=== PATIENT | male | born 2005 | race Caucasian/White ===

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

== ENCOUNTER 2023-07-15 13:32 | Emergency (ER) | payer OTHER, SELFPAY ==
[2023-07-15 14:08] VITALS: BP 138/75; PULSE 87; RESP 16; TEMP 37.6; O2SAT 99
--- NOTE | 2023-07-15 15:40 | ED.HEATRA ---
HPI - Head Injury General Chief complaint: Head Injury Stated complaint: Head Injury Time Seen by Provider: 07/15/23 15:15 Source: patient, RN notes reviewed and old records reviewed Mode of arrival: ambulatory Limitations: no limitations History of Present Illness HPI Narrative: 17-year-old male to [facility] requesting a work note stating he is able to return to work tomorrow. Patient states that yesterday while working underneath a truck he moved his head upward and struck lower left posterior head on bottom of the truck. Patient denies LOC, nausea or vomiting after injury, visual changes. Patient states dizziness after impact that resolved within 5 minutes. Patient A and O x3 in exam room. Speech normal and clear. Patient's significant other who is with him states she has not noticed any changes and voices no concerns. patient in no acute distress. Patient able to tolerate fluids by mouth Related Data Allergies Allergy/AdvReac Type Severity Reaction Status Date / Time No Known Allergies Allergy Verified 07/15/23 14:14 Review of Systems Review of Systems: All systems reviewed & are unremarkable except as noted in HPI and below Constitutional: Constitutional: Reports no additional constitutional complaints Eyes: Eyes: Reports no additional eye complaints ENT: Reports system reviewed and no additional complaints, except as documented Cardiovascular: Cardiovascular: Reports no additional cardiovascular complaints, Denies chest pain and Denies dyspnea Respiratory: Respiratory: Reports no additional respiratory complaints, Denies cough and Denies dyspnea Musculoskeletal: Musculoskeletal: Reports no additional musculoskeletal complaints Neurologic: Reports as per HPI, Reports Normal hearing present, Denies Abnormal speech present, Denies abnormal gait, Denies behavioral changes, Denies vertigo, Denies dizziness, Denies syncope, Reports headache(s), Denies lack of coordination, Denies loss of vision and Denies Other visual disturbances Psychiatric: Psychiatric: Reports no additional psychiatric complaints PMF Past Medical History Medical History Sleep apnea Surgical History Surgical History H/O adenoidectomy Hx of tonsillectomy Comments At the time of my signature, I reviewed and agree with the nursing past medical, surgical, social, and family history. There is no relevant family history pertinent to the patient complaint. Exam Const: General: cooperative, healthy appearing, comfortable, no acute distress, alert and well nourished Nutritional Appearance: well nourished Orientation/consciousness: patient oriented x3 Limitations: no limitations HENMT: Head: No palpable skull fracture present, normocephalic and scalp tenderness (lower left posterior) Ears: external ears normal Face/Nose/Sinus: Normal external nose present, Normal nares present, normal facial exam, No erythema and No edema Face and sinus: normal facial exam, no erythema and no edema Mouth: Yes Normal oral and palatal mucosa present Eyes: General: appearance normal, both eyes and all related structures Alignment and Position: alignment normal and position normal Pupils: Equal, round and reactive pupils present, Pupils normal by confrontation and Pupil accommodation reflex normal Neck: Neck: normal visual inspection, full ROM and no meningeal signs Lymphatic: no lymphadenopathy noted and no lymphedema noted Chest: Chest palpation & inspection: normal inspection of the chest Resp: Effort & Inspection: normal respiratory effort and able to speak in complete sentences Auscultation: clear to auscultation bilaterally Cardio: Jugular venous distension: no JVD Rate: regular rate Rhythm: regular rhythm Back/Spine/Pelvis: Cervical Spine: cervical ROM normal Skin: General skin exam: normal color, no rashes or lesions n
== END 2023-07-15 15:56 | disposition home or self-care (01) ==
PROVIDERS: Emergency Provider Nurse Practitioner Family
DX: S06.0X0A Concussion without loss of consciousness, initial encounter (principal); W22.8XXA Striking against or struck by other objects, initial encounter
CPT/HCPCS: 99213; G0463

== ENCOUNTER 2024-11-27 09:00 | Emergency (ER) | payer OTHER, SELFPAY ==
--- OUTSIDE RECORDS SUMMARY | 2008-10-11 19:00 | XMS_ITS | Continuity of Care Document ---
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 No Information Roge Michele. [address] [facility] [address], [place], [address], [place]. tel:[phone] Family History Family Member Type Diagnosis Age At Onset No Information Immunizations Vaccine Date Status Comments 51575 - Hepatitis_A administered Source: Source Unspecified 35687 - Polio_OPV_IPV administered Source : Source Unspecified 13628 - DTaP_DTP_DT_PEDS administered Hillary rce: Source Unspecified 04087 - Hepatitis_B administered Source: Source Unspecified 62009 - Pneumococcal_PCV administered Hillary rce: Source Unspecified 69041 - MMR administered Source: Source Unspecified 47275 - Hib administered Source: Source Unspecified 31801 - Varicella administered Source: So urce Unspecified 99854 - Hepatitis_B administered Source: Source Unspecified 64175 - Hib administered Source: Source Unspecified 56665 - DTaP_DTP_DT_PEDS administered Hillary rce: Source Unspecified 79509 - Pneumococcal_PCV administered Hillary rce: Source Unspecified 08458 - Hib administered Source: Source Unspecified 58082 - Polio_OPV_IPV administered Source : Source Unspecified 87981 - DTaP_DTP_DT_PEDS administered Hillary rce: Source Unspecified 06264 - Pneumococcal_PCV administered Hillary rce: Source Unspecified 98507 - Hepatitis_B administered Source: Source Unspecified 16459 - Hepatitis_B administered Source: Source Unspecified 87315 - Hib administered Source: Source Unspecified 02623 - Pneumococcal_PCV administered Hillary rce: Source Unspecified 81721 - Polio_OPV_IPV administered Source : Source Unspecified 67875 - DTaP_DTP_DT_PEDS administered Hillary rce: Source Unspecified Payers Payer name Insurance type Covered libertarian ID Authoriza tion(s) No Information Social History Type Description Quantity Date Captured Comments Sex Male Smoking Status No Information Chief Complaint And Reason For Visit No Information Reason For Referral Reason For Referral No Information History Of Present Illness Encounter Date Complaint History Of Prese nt Illness No Information Functional Status Date Functional Assessmen t No Information Instructions Date Instruction Additional Infor mation No Information Assessments Type Assessment Date No Information Patient Care Teams Name Effective Dates (start - stop) Status Members No Information
--- OUTSIDE RECORDS SUMMARY | 2008-10-11 19:00 | XMS_ITS | Continuity of Care Document ---
Author Organization [facility] Address [address] [place] [address] Phone Care Team Providers Care Mortgage Loan Coordinator Name Role Phone Ryne Guan MD Unavailable Unavailable Advance Directives Directive Yes / No Effective Date File Name No Information Encounters Encounter Description Practice Location Reason(s) For Visit Diagnoses Date Provider Providers Copied on Encounter [facility], [address], [place], [place], [address], [place] tel:[phone] [facility] No Information Roge Michele. [address] [facility] [address], [place], [id number], [place]. tel:[phone] Family History Family Member Type Diagnosis Age At Onset No Information Immunizations Vaccine Date Status Comments 93825 - Hepatitis_A administered Source: Source Unspecified 37116 - Polio_OPV_IPV administered Source : Source Unspecified 06503 - DTaP_DTP_DT_PEDS administered Hillary rce: Source Unspecified 94356 - Hepatitis_B administered Source: Source Unspecified 64194 - Pneumococcal_PCV administered Hillary rce: Source Unspecified 43536 - MMR administered Source: Source Unspecified 49516 - Hib administered Source: Source Unspecified 27876 - Varicella administered Source: So urce Unspecified 23291 - Hepatitis_B administered Source: Source Unspecified 91197 - Hib administered Source: Source Unspecified 89182 - DTaP_DTP_DT_PEDS administered Hillary rce: Source Unspecified 42677 - Pneumococcal_PCV administered Hillary rce: Source Unspecified 71431 - Hib administered Source: Source Unspecified 56935 - Polio_OPV_IPV administered Source : Source Unspecified 25759 - DTaP_DTP_DT_PEDS administered Hillary rce: Source Unspecified 31869 - Pneumococcal_PCV administered Hillary rce: Source Unspecified 56074 - Hepatitis_B administered Source: Source Unspecified 48639 - Hepatitis_B administered Source: Source Unspecified 00248 - Hib administered Source: Source Unspecified 24060 - Pneumococcal_PCV administered Hillary rce: Source Unspecified 08322 - Polio_OPV_IPV administered Source : Source Unspecified 91533 - DTaP_DTP_DT_PEDS administered Hillary rce: Source Unspecified [...]
--- NOTE | ~2024-11-27 | XR_ITS ---
EXAMINATION: XR finger 1st RT min 2V, 11/27/2024 9:15 CDT HISTORY: twist/smash injury to distal phalanx, blood under nail COMPARISON: No comparisons available. Findings: No acute fracture or malalignment. No significant degenerative changes. Soft tissues unremarkable. Impression: No acute fracture or malalignment. Reviewed, dictated and finalized at location P. Impression: No acute fracture or malalignment.
--- NOTE | 2024-11-27 09:00 | ED.UPPEXIN ---
HPI - Extremity Injury (Upper) General Chief Complaint: Extremity Injury, Upper Stated Complaint: Right Thumb Injury Time Seen by Provider: 11/27/24 09:00 Source: patient Mode of arrival: ambulatory Limitations: no limitations History of Present Illness HPI narrative: Jessica is a 19 year old male patient presenting to the clinic today with c/o right thumb pain/injury x 2 day. He reports he was helping to load a dirt bike and he got his right thumb caught in between the sprocket and the chain. States his thumb was then twisted. Has pain with flexion and extension over the PIP joint. Swelling noted over the distal thumb with subungual hematoma over the right thumb nail. Rates pain 5/10. Has not done any treatment. No open wounds. Related Data Home Medications ?Medication ?Instructions ?Recorded ?Confirmed ?Last Taken ?Type No Home Medications 11/27/24 11/27/24 Unknown History Allergies Allergy/AdvReac Type Severity Reaction Status Date / Time No Known Allergies Allergy Verified 11/27/24 09:08 Review of Systems Review of Systems: Pertinent positives per HPI. Patient denies any fever, chills, rash, headache, visual changes, dizziness, cough, runny nose, sore throat, shortness of breath, chest pain, palpitations, nausea, vomiting, diarrhea, constipation, abdominal pain, or any urinary issues. [facility] Past Medical History Medical History Sleep apnea Surgical History Surgical History H/O adenoidectomy Hx of tonsillectomy Comments At the time of my signature, I reviewed and agree with the nursing past medical, surgical, social, and family history. There is no relevant family history pertinent to the patient complaint. Exam Narrative: General: Well-developed, well nourished, in no apparent distress Head: Normocephalic, atraumatic. Cardio: Regular rate and rhythm, s1 and s2 normal, no murmur appreciated. Resp: Clear to auscultation bilaterally, no rhonchi, rales, wheezing or rubs. Musculoskeletal: No deformity, swelling to the distal right thumb with subungual hematoma, tender to palpation over the distal thumb, pain and limited range of motion with flexion extension over the PIP joint, grossly normal range of motion over the MCP joint,muscle strength strong and equal, peripheral pulse strong, no edema, no cyanosis, normal gait and station Course Course Emergency Course: Portions of this record may have been created with voice recognition software. Level of Care: Express Care Visit Vital Signs Vital signs: Vital Signs Temperature 36.9 C 11/27/24 09:05 Pulse Rate 102 H 11/27/24 09:05 Respiratory Rate 16 11/27/24 09:05 Blood Pressure 141/77 H 11/27/24 09:05 Pulse Oximetry 100 11/27/24 09:05 Oxygen Delivery Room Air 11/27/24 09:05 Temperature 36.9 C 11/27/24 09:05 Pulse Rate 102 H 11/27/24 09:05 Respiratory Rate 16 11/27/24 09:05 Blood Pressure 141/77 H 11/27/24 09:05 Pulse Oximetry 100 11/27/24 09:05 Oxygen Delivery Room Air 11/27/24 09:05 Vital signs reviewed MDM - Extremity Injury (Upper) MDM Narrative Medical decision making narrative: At the time of visit patient is resting comfortably on the exam table. Patient appears to be nontoxic. C/o right thumb pain/injury x 2 day. He reports he was helping to load a dirt bike and he got his right thumb caught in between the sprocket and the chain. States his thumb was then twisted. Has pain with flexion and extension over the PIP joint. Swelling noted over the distal thumb with subungual hematoma over the right thumb nail. Rates pain 5/10. Has not done any treatment. No open wounds. On exam as no deformity, swelling to the distal right thumb with subungual hematoma, tender to palpation over the distal thumb, pain and limited range of motion with flexion extension over the PIP joint, grossly normal range of motion over the MCP joint. X-ray of the right thumb was ordered. Diagnostics: X-ray of the right thumb was performed and was negative for any fracture or malalignment in the clinic today Procedure: Verbal consent obtained for drainage of right thumb subungual hematoma. Area was cleansed with antiseptic wound wash and cauterizing was used to drain subungual hematoma. Patient tolerated well. Area was then covered with Band-Aid. Plan: I suspect patient has thumb contusion with subungual hematoma. Hematoma was drained in the clinic today. Supportive measures were discussed with the patient and they voiced understanding discharge instructions and agrees to treatment plan. Return precautions reviewed Differential Diagnosis Differential diagnosis: Likely finger sprain, dislocation of finger and other (finger fracture) Discharge Plan Discharge Clinical Impression: Subungual hematoma of right thumb Qualifiers: Encounter type: initial encounter Qualified Code(s): S60.111A - Contusion of right thumb with damage to nail, initial encounter Patient Disposition: Home Condition: Stable Instructions: Antibiotic Form, Subungual Hematoma (ED), Contusion in Adults (ED) Additional Instructions: X-rays negative for any sign of fracture or malalignment to the right thumb Subungual hematoma was drained in the clinic today. Rest, ice, and elevate Tylenol/motrin for pain as discussed. Watch for signs and symptoms of infection- fever, redness, swelling, purulent discharge, or streaking. Follow up with your PCP if symptoms persist more than 1 week. Patient Language: Estonian Prescriptions: No Action No Home Medications Follow-up/Referrals: UNKNOWN,DOCTOR [Non-Staff] Time of Disposition: 09:28 Quality NIHSS Nursing Documentation ED NIHSS nursing documentation: reviewed/agree
[2024-11-27 09:05] VITALS: BP 141/77; PULSE 102; RESP 16; TEMP 36.9; O2SAT 100
== END 2024-11-27 09:36 | disposition home or self-care (01) ==
PROVIDERS: Emergency Provider Nurse Practitioner Family
DX: S60.111A Contusion of right thumb with damage to nail, initial encounter (principal); X58.XXXA Exposure to other specified factors, initial encounter
CPT/HCPCS: 11740; 73140; 99213; G0463

== ENCOUNTER 2024-12-09 10:13 | Emergency (ER) | payer OTHER, SELFPAY ==
[2024-12-09 10:18] VITALS: BP 144/69; PULSE 97; RESP 16; TEMP 36.5; O2SAT 99
--- NOTE | 2024-12-09 10:30 | ED_ITS ---
HPI - Neck Pain/Injury General Chief Complaint: Neck Pain/Injury Stated Complaint: Neck Pain Time Seen by Provider: 12/09/24 10:30 Source: patient, RN notes reviewed and old records reviewed Mode of arrival: ambulatory Limitations: no limitations History of Present Illness HPI Narrative: 19 year old male who presents to [facility] care with complaints of right sided neck pain and pain along top of right shoulder that started yesterday after pulling on an engine at work. Patient does have full ROM of his right shoulder. Patient has pain reproduced with palpation. Patient has been taking Tylenol and Ibuprofen for his discomfort. MD complaint: neck pain and other (pain along top of right shoulder) Onset (ago): day(s) (yesterday) Place: work Severity scale (1-10): 8 Quality: aching Treatments prior to arrival: acetaminophen and ibuprofen Related Data Allergies Allergy/AdvReac Type Severity Reaction Status Date / Time No Known Allergies Allergy Verified 12/09/24 10:21 Review of Systems Review of Systems: CONSTITUTIONAL: Denies fever, chills, or sweats. EYES: Denies visual changes, redness, or discharge. ENT: Denies rhinorrhea, congestion, sore throat, or otalgia. CARDIOVASCULAR: Denies chest pain, palpitations, or edema. RESPIRATORY: Denies cough or dyspnea. GASTROINTESTINAL: Denies abdominal pain, nausea, vomiting, or diarrhea. GENITOURINARY: Denies dysuria or hematuria. SKIN: Denies rash or itching. MUSCULOSKELETAL: Denies back pain,reports pain to the top of right shoulder and pain in the right side of neck or myalgia. NEUROLOGIC: Denies headache, numbness, or weakness. PSYCHIATRIC: Denies anxiety or depression. All systems reviewed & are unremarkable except as noted in HPI and below PMFSH Past Medical History Medical History Sleep apnea Surgical History Surgical History H/O adenoidectomy Hx of tonsillectomy Social History Social History (Updated 12/09/24 @ 11:17 by Helen Mora NP) Smoking status: Smoker, status unknown Alcohol intake: current Alcohol use details: social Substance use type: does not use Living arrangements: with family Gender identity (if verbalized by the patient): Male Comments At time of signature, agree with nursing past medical, surgical, social and family history. There is no relevant family history pertinent to the presenting complaint Exam Narrative: GENERAL: Well-appearing, well-nourished, and in no acute distress. HEAD: Normocephalic, atraumatic. EYES: PERRLA and EOMI. ENT: Nares clear, no rhinorrhea or epistaxis. Mucous membranes moist. TM's normal throat pink with no tonsils present NECK: Supple. pain to the right side of neck increases when moving neck to right side does have full ROM of neck CHEST: Clear to auscultation. No respiratory distress. no cough noted SAO2 99% on room air HEART: Regular rate and rhythm. No murmur heard. Normal peripheral pulses. ABDOMEN: Soft, nontender, nondistended, normal active bowel sounds. EXTREMITIES: Normal range of motion. No edema. Patient has full ROM of right shoulder reports that pain is along top of shoulder and in right side of neck denies any tingling or numbness to arms or hand, full ROM with strong pulses present right arm SKIN: Warm, dry, no rash. NEURO: No focal deficits. Alert and oriented x3. Course Course Emergency Course: Patient is aware of diagnosis, understands and agrees to treatment plan.? Anticipatory guidance given.? Patient agrees to follow-up as directed and is aware of reasons to seek care at the emergency department. Portions of this record may have been created with voice recognition software Level of Care: Express Care Visit Vital Signs Vital signs: Vital Signs Temperature 36.5 C 12/09/24 10:18 Pulse Rate 97 12/09/24 10:18 Respiratory Rate 16 12/09/24 10:18 Blood Pressure 144/69 H 12/09/24 10:18 Pulse Oximetry 99 12/09/24 10:18 Oxygen Delivery Room Air 12/09/24 10:18 Temperature 36.5 C 12/09/24 10:18 Pulse Rate 97 12/09/24 10:18 Respiratory Rate 16 12/09/24 10:18 Blood Pressure 144/69 H 12/09/24 10:18 Pulse Oximetry 99 12/09/24 10:18 Oxygen Delivery Room Air 12/09/24 10:18 Reviewed MDM - Neck Pain/Injury Differential Diagnosis Differential diagnosis: Likely strain of neck muscle and other (levator muscle strain, anterior right shoulder discomfort, right sided neck pain) Medical Records Attestation: I reviewed the patient's medical records. Critical Care Time Critical Care Time Critical Care Time: No Discharge Plan Discharge Clinical Impression: Strain of neck muscle, Strain of right levator scapulae muscle Patient Disposition: Home Condition: Stable Instructions: Antibiotic Form, Muscle Strain (ED), Neck Pain (ED) Additional Instructions: Ice and heat to the area for 20-30 minutes Gentle stretching exercises Gentle massage Caution with lifting, bending, stooping, twisting Avoid pushing, pulling take muscle relaxants as directed--caution drowsiness and no driving or alcohol. talk at bedtime only Anti-inflammatory medicine as directed--take with food He may take the muscle relaxant and anti-inflammatory at the same time Follow-up with your PCP if not improving in 5-7 days Prednisone as prescribed with food If your symptoms persist, change or worsen significantly before you can contact your personal physician then please, without delay, go to the emergency department for further evaluation. Follow-up with PCP in 7-10 days or sooner if needed Follow up with PCP soon in regards to your blood pressure which is elevated above threshold for referral. Blood pressure above 120/80 may indicate pre- hypertension.144/69 Patient Language: Iranian Prescriptions: New ibuprofen 600 mg tablet 600 mg PO TID PRN (Reason: pain) Qty: 20 0RF Rx Instructions: take with food cyclobenzaprine 10 mg tablet 10 mg PO HS Qty: 14 0RF Rx Instructions: no driving or any alcohol while taking this medication prednisone 20 mg tablet 40 mg PO DAILY 5 Days Qty: 10 0RF Follow-up/Referrals: PHYSICIAN,SCRAP CHARGER [Primary Care Provider, Internal Medicine] Time of Disposition: 10:48 Quality [place] Coma Scale Eyes: Open Verbal: Oriented and Alert Motor: Follows Commands [place] Coma Total Score: 15
--- OUTSIDE RECORDS SUMMARY | 2024-12-09 11:51 | XMS_ITS | Clinical Summary ---
Author Organization [facility] [employer] Address [address] [place] [address] Care Team Providers Care Teachers Assistant Name Role Phone Radha Monteiro MD Unavailable Unavailable Jesse Courtney MD Primary Care Provider [phone] Source Comments [facility] [employer],non-owned Affiliates and Associated Physician Practices is amultiple site organization consisting of ambulatory clinics and hospital sitesin [place], [place], [place] and [place]. This disclosure is being madepursuant to the Care Everywhere program and may not contain all information available regarding this patient. Last updated 17.[facility] [employer] Allergies No known active allergies Medications * Be aware that medications may not be up to date on this document. Alwaysverify current medications with the patient. acetaminophen (TYLENOL) 160 MG/5ML solution Take by mouth every 4 hours as needed for Fever or Pain Active vitamin D, ergocalciferol, (DRISDOL) 1.25 MG (98112 UT) capsule TAKE 1 CAPSULE EVERY WEEK BY ORAL ROUTE. 11/18/2020 Active famotidine (PEPCID) 40 MG tablet Take 1 (one) tablet by mouth at bedtime 90 tablet 4 12/01/2020 Active Active Problems Problem Noted Date Diagnosed Date Nondisplaced fracture of mid dle phalanx of left middle finger, initial encounter for closed fracture 02/10/2019 Concussion 12/10/2016 Obesity 09/14/2013 Nonorganic enuresis 09/14/2013 SHERICE (obstructive sleep apnea) 05/30/2011 Immunizations Immunization Administration Dates Next Due DTaP VACCINE IM (6wk-6yrs) 10/12/2008,,04/10/2004,02/07/2004, HEP A PEDS 2 DOSE 05/10/2006,10/16/2005 HEP B VACCINE, PED/ADOL 09/18/2005,07/10/2004,,2003 HIB-PRP-T 4 DOSE 09/18/2005,04/10/2004, 4,2003 MMR 10/09/2008,09/18/2005 PNEUMOCOCCAL PCV7 CONJ, PEDS 09/19/2005,04/10/19 05,02/07/2004,2003 POLIO IPV 10/12/2008,09/18/2005,02/07/2004 ,2003 VARICELLA 08/03/2009,09/18/2005 Family History Medical History Relation Name Comments Cancer Maternal Grandmother ovarian Diabetes - Type 2 Maternal Grandmother Hypercholesterolemia Maternal Grandmother Hypertension Maternal Grandmother Thyroid Disease Mother Relation Name Status Comments Maternal Grandmother Mother Social History Tobacco Use Types Packs/Day Years Used Date Smoking Tobacco: Passive Smo ke Exposure - Never Smoker Smokeless Tobacco: Never Alcohol Use Standard Drinks/Week Comments No 0 (1 standard drink = 0.6 oz pur e alcohol) Sex and Gender Information Value Date Recorded Sex Assigned at Not on file 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 Gender Identity Not on file Sexual Orientation Not on file Last Filed Vital Signs Vital Sign Reading Time Taken Comments Blood Pressure 114/62 12/01/2020 1:07 PM CDT Pulse 123 12/01/2020 1:07 PM CDT Temperature 37.5 C (99.5 F) 11/16/2020 2:35 PM CDT per pcp Respiratory Rate 20 12/01/2020 1:07 PM CDT Oxygen Saturation 100% 12/01/2020 1:07 PM CDT Inhaled Oxygen Concentration - - Weight 58.6 kg (129 lb 3 oz) 12/01/2020 1:07 PM CDT Height 179.5 cm (5' 10.67) 12/01/2020 1:07 PM C DT Body Mass Index 18.19 12/01/2020 1:07 PM CDT Plan of Treatment Health Maintenance Due Date Last Done Comments DTAP/TDAP/TD VACCINES (6 - Tdap) 10/04/2014 10/12/2008, 09/18/2005, 04/10/2004, Additional history exists HIV SCREENING 10/04/2018 HPV VACCINE (1 - Male 3-dose series) 10/04/2018 MENINGOCOCCAL (Group B) VACCINE SHARED DECISION-MAKING (1 of 2 - Standard) 2019 HEPATITIS C SCREENING 09/30/2021 DEPRESSION SCREENING 02/26/2024 COVID-19 VACCINE ( - season) 2024 INFLUENZA VACCINE (#1) 2024 ZOSTER VACCINE (1 of 2) 10/04/2053 HEPATITIS B VACCINE Completed 09/18/2005, 07/10/2004, 02/07/2004, Additional history exists HIB VACCINE Completed 09/18/2005, 03/28, 02/07/2004, Additional history exists PNEUMOCOCCAL VACCINE Completed 09/19/2005, 04/10/2004, 02/07/2004, Additional history exists MENINGOCOCCAL GROUPS A/C/Y/W VACCINE Aged Out No longer eligible based on patient's age to complete this topic Insurance [id number] [place] [address] [facility] Care Teams Teachers Assistant Relationship Specialty Start Date End Date Jesse Courtney MD [address] [place] [place] [address] [phone] PCP - General Pediatrics 12/15/20 Radha Monteiro MD Orthopedic Surgery 02/10/19
--- OUTSIDE RECORDS SUMMARY | 2024-12-09 11:51 | XMS_ITS | Clinical Summary ---
Author Organization [facility] Address [address] [place] [address] Phone Care Team Providers Care Benefits Sales Consultant Name Role Phone Jesse Courtney MD Primary Care Provider Allergies No known active allergies Medications No known medications Social History Tobacco Use Types Packs/Day Years Used Date Smoking Tobacco: Never Smokeless Tobacco: Never Alcohol Use Standard Drinks/Week Comments Never 0 (1 standard drink = 0.6 oz pur e alcohol) Sex and Gender Information Value Date Recorded Sex Assigned at Not on file Legal Sex Male 7:43 PM CDT Gender Identity Not on file Sexual Orientation Not on file Last Filed Vital Signs Vital Sign Reading Time Taken Comments Blood Pressure 123/79 12/13/2021 6:29 PM CDT Pulse 80 12/13/2021 6:29 PM CDT Temperature 37 C (98.6 F) 12/13/2021 6:29 PM CDT Respiratory Rate 20 12/13/2021 6:29 PM CDT Oxygen Saturation 97% 12/13/2021 6:29 PM CDT Inhaled Oxygen Concentration - - Weight 65.8 kg (145 lb) 12/13/2021 6:29 PM CDT Height 185.4 cm (6' 1) 12/13/2021 6:29 PM CDT Body Mass Index 19.13 12/13/2021 6:29 PM CDT Plan of Treatment Health Maintenance Due Date Last Done Comments Hepatitis C Virus (HCV) Screening 2003 Meningococcal B Immunization (2 of 2 - Bexsero SCDM 2-dose series) 06/06/2021 12/06/2020 Influenza Immunization (#1) 2024 SARS-COV-2 Immunization () 10/26/2024 Respiratory Syncytial Virus (RSV) Immunization (Adult) (1 - 1-dose 75+ series) 10/04/2078 Hepatitis B Immunization Completed 006, 09/18/2005, 07/10/2004, Additional history exists Pneumococcal Immunization Combined Aged Out 09/18/2005, 04/10/2004, 02/07/2004, Additional history exists No longer eligible based on patient's age to complete this topic Hepatitis A Immunization Discontinued 007, 05/10/2006, 10/16/2005, Additional history exists Measles Mumps Rubella (MMR) Immunization Discontinued 10/09/2008, 09/18/2005 Polio (IPV) Immunization Discontinued 009, 10/12/2008, 09/18/2005, Additional history exists Varicella Immunization Discontinued 08/03/2009, 2005 DTaP/Tdap/Td Immunization Discontinued 2014, 10/12/2008, 10/12/2008, Additional history exists TdaP Immunization Completed 09/13/2014 Human Papillomavirus (HPV) Immunization Completed 12/06/2020, 10/01/2018 Meningococcal Immunization (ACWY) Completed 12/06/2020, 11/25/2014 Rotavirus Immunization Aged Out No lo nger eligible based on patient's age to complete this topic Insurance MEDICAID [employer] [facility] Care Teams Benefits Sales Consultant Relationship Specialty Start Date End Date Jesse Courtney MD [address] [place] [address] [place] [id number] PCP - General Pediatrics 11/10/16
--- OUTSIDE RECORDS SUMMARY | 2024-12-09 11:51 | XMS_ITS | Encounter Summary ---
Author Organization 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 Gender Identity Not on file Sexual Orientation Not on file documented as of this encounter Plan of Treatment Not on file documented as of this encounter Visit Diagnoses Not on filedocumented in this encounter Care Teams Cutting Machine Fixer Relationship Specialty Start Date End Date Jesse Courtney MD [address] [place], [place] [id number] PCP - General 04/16/11 10/17/15 Ady Campos DO [address] [place], [place] [id number] PCP - General Pediatrics 10/18/15 10/18/15 Jesse Courtney MD [address] [place], [place] [id number] PCP - General Pediatrics 11/30/16 12/05/16 Jesse Courtney MD [address] [place], [place] [id number] PCP - General Pediatrics 12/15/20 Radha Monteiro MD [address] [place], [place] [id number] Orthopedic Surgery 02/10/19 documented as of this encounter
== END 2024-12-09 10:50 | disposition home or self-care (01) ==
PROVIDERS: Emergency Provider Registered Nurse
DX: S16.1XXA Strain of muscle, fascia and tendon at neck level, initial encounter (principal); S46.811A Strain of other muscles, fascia and tendons at shoulder and upper arm level, right arm, initial encounter; X50.0XXA Overexertion from strenuous movement or load, initial encounter; Y99.0 Civilian activity done for income or pay
CPT/HCPCS: 99213; G0463